=== PATIENT | female | born 1940 | race Caucasian/White ===

== ENCOUNTER 2021-03-07 13:47 | Outpatient (REF) | payer MEDICARE, SELFPAY ==
[2021-03-07 15:24] LABS: Vitamin B12 575 pg/mL (200-900)
== END 2021-03-07 13:48 | disposition home or self-care (01) ==
LOC: HO.LAB 13:47
PROVIDERS: PCP Internal Medicine; Visit Provider Psychiatry & Neurology Neurology
DX: G30.9 Alzheimer's disease, unspecified (principal)
CPT/HCPCS: 36415; 82607